=== PATIENT | male | born 1985 | race Caucasian/White ===

== ENCOUNTER 2022-01-18 08:35 | Day surgery (SDC) | payer OTHER ==
[2022-01-15 10:22] LABS: COVID AG,FIA SOURCE NASOPHARYNGEAL
[~2022-01-18] VITALS: Ht 160 cm; Wt 52.7 kg
[~2022-01-18 08:35] MED LIST: BACL10TA PO; CALC-1038 PO; LEVO25TA9 PO; MULT-1203 PO; SODIUM CHLORIDE 0.9% 1,000 ML IV ONE; SODIUM CHLORIDE 0.9% 1,000 ML ONE; TIZA-211 PO; VIT1TABL66 PO
[2022-01-18] MEDS ORDERED: PROPOFOL 1% 20 ML VIAL IVP ONE (12:00)
== END 2022-01-18 11:45 | disposition home or self-care (01) ==
LOC: SURGERY 08:35
PROVIDERS: ATTEND Student in an Organized Health Care Education/Training Program
DX: K62.5 Hemorrhage of anus and rectum (principal); R63.4 Abnormal weight loss; K64.8 Other hemorrhoids; K21.9 Gastro-esophageal reflux disease without esophagitis; K29.70 Gastritis, unspecified, without bleeding; Z90.49 Acquired absence of other specified parts of digestive tract; Z98.890 Other specified postprocedural states; G80.9 Cerebral palsy, unspecified; Z79.899 Other long term (current) drug therapy
CPT/HCPCS: 45378; 43239; 87426; C1769; C9803; J2704; J7030; 88305; 88312; 88313

== ENCOUNTER 2022-10-26 16:09 | Emergency (ER) | payer OTHER ==
[~2022-10-26] VITALS: Ht 165.1 cm; Wt 59.1 kg
[~2022-10-26 16:09] MED LIST changes: -SODIUM CHLORIDE 0.9% 1,000 ML IV ONE; -SODIUM CHLORIDE 0.9% 1,000 ML ONE
[2022-10-26] MEDS ORDERED: OXYMETAZOLINE HCL 0.05% 15 ML NASAL SPRAY NASAL ONE (17:45)
[2022-10-26] MEDS ORDERED: IBUPROFEN 600 MG TABLET PO ONE (17:45)
[2022-10-26] MEDS ORDERED: ACETAMINOPHEN 500 MG TABLET PO ONE (17:45)
[2022-10-26] MEDS ORDERED: ACET-3385 PO (18:07)
[2022-10-26] MEDS ORDERED: IBUP-2070 PO (18:08)
[2022-10-26 18:44] VITALS: BP 120/70
== END 2022-10-26 19:16 | disposition home or self-care (01) ==
LOC: EMS 16:30
DX: U07.1 COVID-19 (principal); G80.9 Cerebral palsy, unspecified
CPT/HCPCS: 99284; Z7502; Z7610